=== PATIENT | male | born 1955 | race Caucasian/White ===

== ENCOUNTER 2020-10-14 07:45 | Outpatient (REF) | payer MEDICARE, SELFPAY ==
[2020-10-14 10:18] LABS: Hemoglobin 16.3 g/dl (14.0-18.0); Mean Corpuscular HGB Conc 33.3 g/dl (31.0-36.0); Mean Corpuscular Hemoglobin 33.5 pg (27.0-33.0); Mean Corpuscular Volume 100.8 fL (80-98); Mean Platelet Volume 10.1 fL (9.4-12.4); Platelet Count 224 X10*3/uL (160-400); Red Blood Count 4.86 X10*6/uL (4.60-5.80); Red Cell Distribution Width 12.5 % (11.0-16.0); White Blood Count 5.9 X10*3/uL (4.8-10.8)
[2020-10-14 10:43] LABS: Estimated Average Glucose 108 mg/dL; Hemoglobin A1c % 5.4 %
[2020-10-14 10:47] LABS: Alanine Aminotransferase 15 U/L (0-40); Albumin Level 4.2 g/dL (3.5-5.0); Alkaline Phosphatase 100 U/L (39-117); Anion Gap 11 (12-20); Aspartate Amino Transferase 23 U/L (5-37); Bilirubin Total 0.4 mg/dL (0.0-1.0); Blood Urea Nitrogen 27 mg/dL (9-16); Calcium 9.1 mg/dL (8.4-10.2); Carbon Dioxide 33 mmol/L (22-29); Chloride 102 mmol/L (96-108); Cholesterol 182 mg/dL; Estimated Glomerular Filt Rate > 60; Glucose Fasting 100 mg/dL (60-99); HDL Cholesterol 61 mg/dL; LDL Cholesterol Calculated 108 mg/dl; Potassium 4.1 mmol/L (3.3-5.1); Sodium 142 mmol/L (135-145); Total Protein 6.7 g/dL (6.5-8.0); Triglycerides 67 mg/dL
[2020-10-14 11:04] LABS: PSA,Total (Free>4and<10) 1.97 ng/mL (0.00-4.00)
[2020-10-14 11:13] LABS: Prostate Specific Antigen Scr 1.96 ng/mL (<0.05-4.0); TSH reflex Free T4 0.99 uIU/mL (0.32-4.0)
== END 2020-10-14 07:46 | disposition home or self-care (01) ==
LOC: HO.10HDL 07:45
PROVIDERS: Absent Provider Urology; Visit Provider Physician Assistant
DX: N40.1 Benign prostatic hyperplasia with lower urinary tract symptoms (principal); I10 Essential (primary) hypertension; Z12.5 Encounter for screening for malignant neoplasm of prostate; Z13.1 Encounter for screening for diabetes mellitus; Z13.220 Encounter for screening for lipoid disorders; Z13.29 Encounter for screening for other suspected endocrine disorder
CPT/HCPCS: 36415; 80053; 80061; 83036; 84153; 84443; 85027

== ENCOUNTER → 2020-11-14 08:23 | Outpatient (BNVA) | payer BC, SELFPAY | PROVIDERS: PCP Physician Assistant; Visit Provider Urology ==

== ENCOUNTER 2021-04-16 08:01 | Outpatient (REF) | payer BC, SELFPAY ==
[2021-04-16 10:34] LABS: Hematocrit 45.9 % (42-52); Hemoglobin 15.7 g/dl (14.0-18.0); Mean Corpuscular HGB Conc 34.2 g/dl (31.0-36.0); Mean Corpuscular Hemoglobin 33.6 pg (27.0-33.0); Mean Corpuscular Volume 98.3 fL (80-98); Mean Platelet Volume 10.2 fL (9.4-12.4); Platelet Count 223 X10*3/uL (160-400); Red Blood Count 4.67 X10*6/uL (4.60-5.80); Red Cell Distribution Width 12.7 % (11.0-16.0); White Blood Count 5.4 X10*3/uL (4.8-10.8)
[2021-04-16 10:46] LABS: Estimated Average Glucose 108 mg/dL; Hemoglobin A1c % 5.4 %
[2021-04-16 11:20] LABS: Alanine Aminotransferase 16 U/L (0-40); Alkaline Phosphatase 104 U/L (39-117); Anion Gap 11 (12-20); Aspartate Amino Transferase 24 U/L (5-37); Bilirubin Total 0.8 mg/dL (0.0-1.0); Blood Urea Nitrogen 24 mg/dL (9-16); Calcium 8.9 mg/dL (8.4-10.2); Carbon Dioxide 27 mmol/L (22-29); Chloride 107 mmol/L (96-108); Cholesterol 144 mg/dL; Estimated Glomerular Filt Rate > 60; Glucose Fasting 98 mg/dL (60-99); HDL Cholesterol 58 mg/dL; LDL Cholesterol Calculated 76 mg/dl; Potassium 3.9 mmol/L (3.3-5.1); Sodium 141 mmol/L (135-145); Total Protein 6.4 g/dL (6.5-8.0); Triglycerides 52 mg/dL
[2021-04-16 11:30] LABS: TSH reflex Free T4 0.94 uIU/mL (0.32-4.0)
== END 2021-04-16 08:02 | disposition home or self-care (01) ==
LOC: HO.10HDL 08:01
PROVIDERS: Visit Provider Physician Assistant
DX: I10 Essential (primary) hypertension (principal); E78.5 Hyperlipidemia, unspecified
CPT/HCPCS: 36415; 80053; 80061; 83036; 84443; 85027

== ENCOUNTER 2021-10-14 07:56 | Outpatient (REF) | payer MEDICARE, SELFPAY ==
[2021-10-14 08:38] LABS: Hematocrit 47.9 % (42.0-52.0); Hemoglobin 16.2 g/dl (14.0-18.0); Mean Corpuscular HGB Conc 33.8 g/dl (31.0-36.0); Mean Corpuscular Hemoglobin 33.5 pg (27.0-33.0); Mean Corpuscular Volume 99.2 fL (80.0-98.0); Mean Platelet Volume 9.6 fL (9.4-12.4); Platelet Count 230 X10*3/uL (160-400); Red Blood Count 4.83 X10*6/uL (4.60-5.80); Red Cell Distribution Width 12.4 % (11.0-16.0); White Blood Count 6.1 X10*3/uL (4.8-10.8)
[2021-10-14 09:08] LABS: Alanine Aminotransferase 16 U/L (0-40); Albumin Level 3.9 g/dL (3.5-5.0); Alkaline Phosphatase 125 U/L (39-117); Anion Gap 11 (12-20); Aspartate Amino Transferase 24 U/L (5-37); Bilirubin Total 0.3 mg/dL (0.0-1.0); Blood Urea Nitrogen 24 mg/dL (9-16); Calcium 9.1 mg/dL (8.4-10.2); Carbon Dioxide 28 mmol/L (22-29); Chloride 105 mmol/L (96-108); Cholesterol 151 mg/dL; Estimated Glomerular Filt Rate > 60; Glucose Fasting 97 mg/dL (60-99); HDL Cholesterol 52 mg/dL; LDL Cholesterol Calculated 89 mg/dl; Sodium 140 mmol/L (135-145); Total Protein 6.5 g/dL (6.5-8.0); Triglycerides 54 mg/dL
[2021-10-14 09:21] LABS: Prostate Specific Antigen 2.87 ng/mL (<0.05-4.0)
== END 2021-10-14 07:57 | disposition home or self-care (01) ==
LOC: HO.LAB 07:56
PROVIDERS: Urology; PCP Physician Assistant; Visit Provider Physician Assistant
DX: Z12.5 Encounter for screening for malignant neoplasm of prostate (principal); N13.8 Other obstructive and reflux uropathy; N40.0 Benign prostatic hyperplasia without lower urinary tract symptoms; N40.1 Benign prostatic hyperplasia with lower urinary tract symptoms; E78.2 Mixed hyperlipidemia; I10 Essential (primary) hypertension
CPT/HCPCS: 36415; 80053; 80061; 84153; 84443; 85027

== ENCOUNTER → 2021-11-18 09:18 | Outpatient (BNVA) | payer MEDICARE, SELFPAY | PROVIDERS: PCP Physician Assistant; Visit Provider Urology | DX: N40.0 Benign prostatic hyperplasia without lower urinary tract symptoms (principal) | CPT/HCPCS: 51798; 99212 ==

== ENCOUNTER 2022-04-20 07:31 | Outpatient (REF) | payer MEDICARE, SELFPAY ==
[2022-04-20 10:37] LABS: Hemoglobin 15.8 g/dl (14.0-18.0); Mean Corpuscular HGB Conc 34.3 g/dl (31.0-36.0); Mean Corpuscular Hemoglobin 34.1 pg (27.0-33.0); Mean Corpuscular Volume 99.1 fL (80.0-98.0); Mean Platelet Volume 10.2 fL (9.4-12.4); Platelet Count 217 X10*3/uL (160-400); Red Blood Count 4.64 X10*6/uL (4.60-5.80); Red Cell Distribution Width 12.7 % (11.0-16.0); White Blood Count 5.6 X10*3/uL (4.8-10.8)
[2022-04-20 10:49] LABS: Estimated Average Glucose 111 mg/dL; Hemoglobin A1C 151.0651 umol/L; Hemoglobin A1c % 5.5 %
[2022-04-20 11:07] LABS: Alanine Aminotransferase 20 U/L (0-40); Alkaline Phosphatase 117 U/L (39-117); Anion Gap 15 (12-20); Aspartate Amino Transferase 32 U/L (5-37); Bilirubin Total 0.6 mg/dL (0.0-1.0); Blood Urea Nitrogen 24 mg/dL (9-16); Calcium 8.9 mg/dL (8.4-10.2); Carbon Dioxide 27 mmol/L (22-29); Chloride 102 mmol/L (96-108); Cholesterol 144 mg/dL; Estimated Glomerular Filt Rate > 60; Glucose Fasting 101 mg/dL (60-99); HDL Cholesterol 52 mg/dL; LDL Cholesterol Calculated 81 mg/dl; Potassium 3.9 mmol/L (3.3-5.1); Sodium 140 mmol/L (135-145); Total Protein 6.5 g/dL (6.5-8.0); Triglycerides 57 mg/dL
[2022-04-20 11:28] LABS: TSH reflex Free T4 0.86 uIU/mL (0.32-4.0)
== END 2022-04-20 07:32 | disposition home or self-care (01) ==
LOC: HO.10HDL 07:31
PROVIDERS: Visit Provider Physician Assistant
DX: I10 Essential (primary) hypertension (principal)
CPT/HCPCS: 36415; 80053; 80061; 83036; 84443; 85027

== ENCOUNTER 2022-11-10 07:40 | Outpatient (REF) | payer MEDICARE, SELFPAY ==
[2022-11-10 11:34] LABS: Prostate Specific Antigen 3.03 ng/mL (<0.05-4.0)
== END 2022-11-10 07:41 | disposition home or self-care (01) ==
LOC: HO.10HDL 07:40
PROVIDERS: Visit Provider Urology
DX: Z12.5 Encounter for screening for malignant neoplasm of prostate (principal); N13.8 Other obstructive and reflux uropathy; N40.0 Benign prostatic hyperplasia without lower urinary tract symptoms
CPT/HCPCS: 36415; 84153

== ENCOUNTER → 2022-11-17 08:32 | Outpatient (BNVA) | payer MEDICARE, SELFPAY | PROVIDERS: PCP Physician Assistant; Visit Provider Urology | DX: N40.1 Benign prostatic hyperplasia with lower urinary tract symptoms (principal); N13.8 Other obstructive and reflux uropathy; R35.1 Nocturia; I10 Essential (primary) hypertension; E78.5 Hyperlipidemia, unspecified | CPT/HCPCS: 51798; 99212 ==

== ENCOUNTER 2023-01-12 07:42 | Outpatient (REF) | payer MEDICARE, SELFPAY ==
[2023-01-12 08:56] LABS: Hematocrit 48.3 % (42.0-52.0); Hemoglobin 16.8 g/dl (14.0-18.0); Mean Corpuscular HGB Conc 34.8 g/dl (31.0-36.0); Mean Corpuscular Hemoglobin 34.4 pg (27.0-33.0); Platelet Count 213 X10*3/uL (160-400); Red Blood Count 4.88 X10*6/uL (4.60-5.80); Red Cell Distribution Width 12.8 % (11.0-16.0); White Blood Count 5.5 X10*3/uL (4.8-10.8)
[2023-01-12 09:37] LABS: Alanine Aminotransferase 16 U/L (0-40); Albumin Level 4.1 g/dL (3.5-5.0); Alkaline Phosphatase 117 U/L (39-117); Anion Gap 13 (12-20); Aspartate Amino Transferase 26 U/L (5-37); Bilirubin Total 0.9 mg/dL (0.0-1.0); Blood Urea Nitrogen 23 mg/dL (9-16); Calcium 9.4 mg/dL (8.4-10.2); Carbon Dioxide 28 mmol/L (22-29); Chloride 105 mmol/L (96-108); Cholesterol 156 mg/dL; Estimated Glomerular Filt Rate > 60; Glucose Fasting 101 mg/dL (60-99); HDL Cholesterol 57 mg/dL; LDL Cholesterol Calculated 88 mg/dl; Sodium 142 mmol/L (135-145); Total Protein 6.7 g/dL (6.5-8.0); Triglycerides 58 mg/dL
[2023-01-12 09:51] LABS: TSH reflex Free T4 1.11 uIU/mL (0.32-4.0)
== END 2023-01-12 07:43 | disposition home or self-care (01) ==
LOC: HO.LAB 07:42
PROVIDERS: PCP Physician Assistant; Visit Provider Physician Assistant
DX: I10 Essential (primary) hypertension (principal); E78.2 Mixed hyperlipidemia
CPT/HCPCS: 36415; 80053; 80061; 84443; 85027

== ENCOUNTER 2023-08-06 07:41 | Outpatient (REF) | payer MEDICARE, SELFPAY | END 2023-08-06 07:42 | disposition home or self-care (01) | LOC: HO.LAB 07:41 | PROVIDERS: PCP Physician Assistant; Visit Provider Physician Assistant | DX: I10 Essential (primary) hypertension (principal); E78.2 Mixed hyperlipidemia | CPT/HCPCS: 36415; 80053; 80061; 85027 ==

== ENCOUNTER 2023-08-09 08:46 | Outpatient (AMB) | payer MEDICARE, SELFPAY ==
[2023-08-09 08:56] VITALS: BP 138/64; PULSE 87; O2SAT 98; BMI 24.7
--- NOTE | 2023-08-09 08:56 | MHC.PC.OV ---
Vital Signs 08/09/23 08:56 Height 5 ft 7 in Weight 158 lb BMI 24.7 BP 138/64 Blood Pressure Location Lt brachial Position Sitting Pulse 87 Pulse Source Pulse Oximeter Pulse Oximetry (%) 98 Oxygen Delivery Method Room Air Intake Visit Reasons: Annual exam Strategic Debriefing Specialist Required: No Clinical Dental Technician: Not Required per policy Accompanied by: Self / Same As Patient Allergies No Known Allergies Allergy (Verified 08/09/23 09:26) Medication List - Last Reconciled 08/09/23 by Sher Resendiz PA-C atorvastatin 40 mg PO DAILY hydrochlorothiazide 25 mg PO DAILY lisinopril 20 mg PO DAILY Tobacco use date assessed: 08/09/23 Fall risk assessment: No Falls in past year Last assessed Fall Risk: 08/09/23 Dental Screening Dental Screen Date: 08/09/23 Did you have a dental visit in the last 12 months?: Yes Did you have a dental problem in the last 6 months where you did not have access to dental care?: No Was dental information given to patient?: Patient has dentist HPI Annual exam HPI Details Patient is a 68-year-old male here today for a routine annual physical ? past medical history significant for hypertension, hyperlipidemia, BPH ... Hypertension:? Blood pressures have been stable, pressure here in office within normal limits.? He reports blood pressures at home are 120s to 130 systolic.? Patient denies any headaches chest pains shortness of breath. .. BPH; is followed by Urology has status post laser procedure in 2019. He has minimal nocturia.? He gets PSAs taken every year. PSA has been stable Vaccine: UTD with COVID vaccine, UTD with Td, considering Shingrex and PCV, . Declines Flu vaccine .. Colonoscopy: considering , Did have colon 10 years ago. Labs: Reviewed labs with patient and noted on his fasting blood sugar elevated to 110. He does admit to a lot of carbohydrates in his diet. He promises to cut down his carbohydrates. Laboratory Tests 01/12/23 08/06/23 08/06/23 07:55 08:04 08:04 RBC 4.84 Creatinine 0.81 Fasting Glucose 101 H 110 H Cholesterol 150 LDL Cholesterol, C alc 83 PFSH Medical History Nocturia Hyperlipidemia HTN (hypertension) Enlarged prostate without lower urinary tract symptoms (luts) Surgical History Appendicitis History of prostate surgery Family History (Updated 08/09/23 @ 09:31 by Sher Resendiz PA-C) Father Heart attack, Onset Age: 48 Son CVA (cerebral vascular accident) Social History (Updated 08/09/23 @ 09:32 by Sher Resendiz PA-C) Housing: House Alcohol intake: current Alcohol intake frequency: a few times a month Alcohol type: beer Patient Tobacco Use Status: Current someday Tobacco user Tobacco use type: Cigar e-Cigarette/Vaping Use: Never Used Second Hand Smoke Exposure: No Current occupational status: retired 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 1. Little interest or pleasure in doing things: not at all 2. Feeling down, depressed, or hopeless: not at all 3. Trouble falling or staying asleep, or sleeping too much: not at all 4. Feeling tired or having little energy: not at all 5. Poor appetite or overeating: not at all 6. Feeling bad about yourself - or that you are a failure or have let yourself or your family down: not at all 7. Trouble concentrating on things, such as reading the newspaper or watching television: not at all 8. Moving or speaking so slowly that other people could have noticed. Or the opposite - being so fidgety or restless that you have been moving around a lot more than usual: not at all 9. Thoughts that you would be better off or of hurting yourself in some way: not at all Total score: 0 Depression Screening Interpretation: Negative Depression Screening Done: Yes 58036 - PHQ-9 Billing: Yes Source: Developed by Drs. Aries Shi, Dalia Blevins, Dwaine Almaraz and colleagues, with an educational yoni from [employer]. Thrive Questionnaire Date Thrive assessed: 08/09/23 I am a: Patient What is your living situation today?: I have a steady place to live Within the past 12 months, did the food you bought not last and you didn't have the money to get more?: Never true Within the past 12 months, did you worry whether your food would run out before you got money to buy more?: Never true Do you have trouble paying for medicines?: No Do you have trouble getting transportation to medical appointments?: No Do you have trouble paying your heating and electricity bill?: No Do you have trouble taking care of your child, family member or friend?: No Do you have trouble with day-to-day activities such as bathing, preparing meals, shopping, managing finances, etc.?: No Are you currently unemployed and looking for a job?: No Are you interested in more education?: No Please select the resources that you would like help with: None AUDIT C Alcohol Use Questionnaire (AUDIT-C) 1. How often do you have a drink containing alcohol?: Monthly or less 2. How many drinks containing alcohol do you have on a typical day when you are drinking?: 1 or 2 3. How often do you have six or more drinks on one occasion?: Never Total Score: 1 ELISE-7 AMB Questionnaire ELISE-7 Date ELISE - 7 assessed: 08/09/23 Feeling nervous, anxious, or on edge: 0 = Not at all Not being able to stop or control worryin = Not at all Worrying too much about different things: 0 = Not at all Trouble relaxin = Not at all Being so restless that it is hard to sit still: 0 = Not at all Becoming easily annoyed or irritable: 0 = Not at all Feeling afraid as if something awful might happen: 0 = Not at all Total ELISE-7 score (0-4 normal; 5-9 mild; 10-14 moderate; 15-21 severe): 0 Source: Developed by Drs. Aries Shi, Dalia Blevins, Dwaine Almaraz and colleagues, with an educational yoni from [employer]. ELISE-7 Assessment Billing ELISE-7 Assessment Tool: ELISE-7 Assessment 94009 Review of Systems Const Denies body aches, Denies chills, Denies excessive sweating, Denies fatigue, Denies fever(s) and Denies headache(s) Eyes Denies blurry vision ENT Denies dysphagia, Denies vertigo, Denies dizziness, Denies headache(s), Denies hearing loss and Denies tinnitus Card Denies chest pain, Denies chest pain with activity, Denies syncope, Denies irregular heart rhythm and Denies dyspnea Resp Denies chest congestion, Denies cough, Denies hemoptysis, Denies dyspnea and Denies wheezing GI Denies abdominal pain, Denies melena, Denies hematochezia, Denies coffee ground emesis, Denies dysphagia, Denies diarrhea, Denies nausea and Denies vomiting Denies difficulty urinating, Denies dysuria, Denies urinary frequency, Denies urinary hesitancy and Denies urinary urgency Musc Denies arthralgias, Denies limited range of motion, Denies muscle cramps and Denies muscle weakness Skin/Breast Denies rash and Denies skin ulcer Neuro Denies Abnormal speech present, Denies confusion, Denies vertigo, Denies dizziness, Denies syncope, Denies headache(s), Denies memory loss and Denies seizure-like activity Psych Denies anxiety, Denies confusion, Denies depression, Denies memory loss, Denies panic attacks and Denies paranoia Endo Denies excessive sweating, Denies fatigue, Denies flushing, Denies polydipsia and Denies polyuria Aller/Immun Denies wheezing Physical exam (Primary Care) Vital Signs: Last Vital Signs Pulse 87 08/09/23 08:56 BP 138/64 08/09/23 08:56 Pulse Ox 98 08/09/23 08:56 Oxygen Delivery Method Room Air 08/09/23 08:56 BMI result Body Mass Index 24.7 Tobacco/Smoking Status: Tobacco use Status Tobacco use date assessed 08/09/23 08/09/23 08:57 Patient Tobacco Use Status Current someday Tobacco 08/09/23 09:32 Tobacco use type Cigar 08/09/23 09:32 e-Cigarette/Vaping Use Never Used 08/09/23 09:32 PHQ-9: PHQ-9 Score PHQ-9: Total score 0 08/09/23 09:33 Depression Screening Interpretation: Negative Thrive Assessment: Date of Thrive Assessment Date Thrive assessed 08/09/23 08/09/23 09:05 Const General: cooperative, comfortable, no acute distress, alert and awake; No confusion Orientation/consciousness: oriented to person, oriented to place, patient oriented x3 and No confusion HENMT Head: Yes normocephalic Ears: external ears normal and TM's normal bilaterally Face and sinus: No sinus tenderness Mouth: Normal oral and palatal mucosa present and tongue normal Teeth and gingiva: dentition normal and gingiva normal Throat: Yes posterior oropharynx normal, Yes tonsils normal and Yes uvula midline Eyes Conjunctivae: conjunctivae normal Sclerae: sclerae normal Pupils: Equal, round and reactive pupils present EOM: EOMs intact bilaterally Direct Ophthalmoscopy: No no photophobia Neck Neck: Yes no lymphadenopathy, No tender and Yes no JVD Thyroid: Thyroid normal Carotids: no bruits Chest Chest palpation & inspection: no tenderness Resp Effort & Inspection: normal respiratory effort, no audible wheezes, not labored and no stridor Auscultation: no crackles, no rales, no rhonchi and no wheezes Cardio Jugular venous distension: no JVD Rate: regular rate, not bradycardic and not tachycardic Rhythm: regular rhythm Bruits: no carotid bruits Peripheral pulses: Peripheral pulses 2+ throughout GI Inspection: Yes normal to inspection, No abdominal wall ecchymosis and No visible herniation Palpation (GI): Soft to palpation, nontender, no guarding, not rigid and No hepatosplenomegaly present Auscultation: normoactive bowel sounds General: Yes no CVA tenderness Back/Spine/Pelvis Back: no CVA tenderness and No back tenderness Cervical Spine: cervical ROM normal Thoracic/Lumbar Spine: thoracic and lumbar spine normal to inspection, straight leg raise negative bilaterally, No thoraco-lumbar ROM limited and No lumbar spinal tenderness Skin Lesions: no lesions Rashes: no rashes Wounds: no wounds Neuro General: oriented to person, oriented to place, patient oriented x3, CN's II-XI intact bilaterally and No confusion Cranial nerves: Yes Equal, round and reactive pupils present and Yes Normal accommodation reflex present Cognition (Neuro): normal cognition Speech: No Abnormal speech present Gait exam (Neuro): Normal gait present Motor exam (neuro): 5/5 motor strength present throughout Extrem Right upper extremity: full ROM; no cyanosis Left upper extremity: full ROM; no cyanosis Right lower extremity: no edema Left lower extremity: no edema Psych Appearance: grossly normal Mental Status: mental status grossly normal Affect: normal affect Attitude: cooperative Thought process: Normal thought process present Assessment and Plan Assessment & Plan (1) Annual physical exam: Code(s): Z00.00 - Encounter for general adult medical examination without abnormal findings (2) HLD (hyperlipidemia): Code(s): E78.5 - Hyperlipidemia, unspecified Qualifiers: Hyperlipidemia type: mixed hyperlipidemia Qualified Code(s): E78.2 - Mixed hyperlipidemia Plan: Patient continues on statin therapy [id number] dosing with excellent control of his lipid panel. Will continue to follow with goal LDL to be below 130 (3) HTN (hypertension): Code(s): I10 - Essential (primary) hypertension Qualifiers: Hypertension type: essential hypertension Qualified Code(s): I10 - Essential (primary) hypertension Plan: Patient's blood pressure acceptable today in office, will continue current dose of hydrochlorothiazide and lisinopril with goal blood pressure be below 140/90 (4) BPH (benign prostatic hyperplasia): Code(s): N40.0 - Benign prostatic hyperplasia without lower urinary tract symptoms Qualifiers: Lower urinary tract symptom presence: symptoms absent Qualified Code(s): N40.0 - Benign prostatic hyperplasia without lower urinary tract symptoms Plan: Continues to follow Urology, denies any urinary symptoms. Is status post TURP procedure , has been urinating well presents.. Most recent PSA stable. (5) Impaired glucose metabolism: Code(s): R73.09 - Other abnormal glucose Plan: Noted elevated fasting blood sugar. Does admit to a lot of carbohydrates in his diet. Will reduce his carbohydrates. Orders: Orders Microalbumin, Random (w Creat) 6 Months I10 - Essential (primary) hypertension Lipid Panel 6 Months E78.2 - Mixed hyperlipidemia Prostate Specific Antigen Scr 6 Months E78.2 - Mixed hyperlipidemia, Z12.5 - Encounter for screening for malignant neoplasm of prostate Hemoglobin A1c 6 Months R73.09 - Other abnormal glucose Comprehensive [place]. Panel Fast 6 Months I10 - Essential (primary) hypertension Medications: Refilled atorvastatin 40 mg PO DAILY 90 tabs 2RF E78.5 - Hyperlipidemia, unspecified hydrochlorothiazide 25 mg PO DAILY 90 tabs 2RF I10 - Essential (primary) hypertension lisinopril 20 mg PO DAILY 90 tabs 2RF I10 - Essential (primary) hypertension Coding Level of Care Code Est Pt Prev Care >65y(16750) Diagnoses Annual physical exam Z00.00 Mixed hyperlipidemia E78.2 Hyperlipidemia type: mixed hyperlipidemia Essential hypertension I10 Hypertension type: essential hypertension Benign prostatic hyperplasia without lower urinary tract symptoms N40.0 Lower urinary tract symptom presence: symptoms absent Impaired glucose metabolism R73.09 Additional Codes ELISE-7 Assessment Billing - ELISE-7 Assessment Tool: ELISE-7 Assessment 19310 ([id number])
== END 2023-08-09 09:49 | disposition home or self-care (01) ==
PROVIDERS: PCP Physician Assistant; Visit Provider Physician Assistant
DX: Z00.00 Encounter for general adult medical examination without abnormal findings (principal); E78.2 Mixed hyperlipidemia; I10 Essential (primary) hypertension; N40.0 Benign prostatic hyperplasia without lower urinary tract symptoms; R73.09 Other abnormal glucose
CPT/HCPCS: 99397

== ENCOUNTER 2023-11-12 07:45 | Outpatient (REF) | payer MEDICARE, SELFPAY ==
[2023-11-12 11:31] LABS: Prostate Specific Antigen 1.94 ng/mL (<0.05-4.0)
== END 2023-11-12 07:46 | disposition home or self-care (01) ==
LOC: HO.10HDL 07:45
PROVIDERS: Visit Provider Urology
DX: N40.0 Benign prostatic hyperplasia without lower urinary tract symptoms (principal); Z12.5 Encounter for screening for malignant neoplasm of prostate
CPT/HCPCS: 36415; 84153

== ENCOUNTER 2023-11-19 08:17 | Outpatient (AMB) | payer MEDICARE, SELFPAY ==
--- NOTE | 2023-11-19 08:21 | MHC.OFFVIS ---
Intake Visit Reasons: 1Y PSA(set)Confirmed Intake Note: Patient is Present for Follow Up Urology Medication: None Antibiotic Allergies:None Blood Thinners:None Patient states that his symptoms are a lot better. No complaints PVR: 0 Allergies No Known Allergies Allergy (Verified 11/19/23 08:24) HPI Comments Details: Chacho is a pleasant male. He is a patient of Dr. Resendiz. He is seen for the following urologic conditions - lower urinary tract symptoms - erectile dysfunction Continued low PVR Lower urinary tract symptoms Stable stream, minimal nocturia Very happy with outcome BPH procedure - late 2018 laser procedure PSA - 09/22 2.0, 09/23 2.9, 10/22 3.3, 11/23 1.9 Prior medical therapy tamsulosin Erectile dysfunction Progressive - past 4 months Has difficulty obtaining rigid enough erection Able to maintain Trial Viagra PFSH Medical History Nocturia Hyperlipidemia HTN (hypertension) Enlarged prostate without lower urinary tract symptoms (luts) Surgical History Appendicitis History of prostate surgery Family History Father Heart attack, Onset Age: 48 Son CVA (cerebral vascular accident) Social History Housing: House Alcohol intake: current Alcohol intake frequency: a few times a month Alcohol type: beer Patient Tobacco Use Status: Current someday Tobacco user Tobacco use type: Cigar e-Cigarette/Vaping Use: Never Used Second Hand Smoke Exposure: No Current occupational status: retired 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 Cognitive needs: No Hearing needs: No Vision needs: No Office Procedures Post Void Residual Post Residual Void Post Void Residual (PVR): [id number] Void Residual by ultrasound Assessment & Plan Assessment & Plan (1) Erectile dysfunction: Code(s): N52.9 - Male erectile dysfunction, unspecified Category: Medical (2) BPH (benign prostatic hyperplasia): Code(s): N40.0 - Benign prostatic hyperplasia without lower urinary tract symptoms Category: Medical Qualifiers: Lower urinary tract symptom presence: symptoms absent Qualified Code(s): N40.0 - Benign prostatic hyperplasia without lower urinary tract symptoms Plan Viagra Three-month follow-up tele Orders: Orders AMB Post Void Residual by ultrasound Today N40.0 - Benign prostatic hyperplasia without lower urinary tract symptoms Medications: New sildenafil administer 60 minutes before intended activity 100 mg PO ONCE 30 days PRN 30 tabs 1RF sexual activity N52.9 - Male erectile dysfunction, unspecified Patient Instructions: Imaging studies, laboratory and physical exam results were discussed and reviewed in detail. No major barriers to patient understanding were identified. An opportunity to ask questions regarding the treatment plan was provided. All questions were answered. The patient expressed understanding and agreement with the above treatment plan. The patient is aware they should contact our office by phone for worsening of their current condition or the appearance of new urologic symptoms. Compliance is encouraged with any medications and followup testing that is ordered. It is a privilege to participate in the urologic care of your patient. If you have any questions or concerns regarding treatment for the above conditions, or other urologic issues, please do not hesitate to contact me. The office telephone contact is [phone]. This note is constructed using voice recognition software. While every effort has been made to ensure accuracy post partum nurse errors may have been included. Yours sincerely, Dr Gigi Melissa MD, [facility] - Urology Providers of Expert, Compassionate Care for the Genitourinary System
== END 2023-11-19 08:46 | disposition home or self-care (01) ==
PROVIDERS: Visit Provider Urology
DX: N52.9 Male erectile dysfunction, unspecified (principal); N40.0 Benign prostatic hyperplasia without lower urinary tract symptoms
CPT/HCPCS: 99214

== ENCOUNTER → 2023-11-19 08:17 | Outpatient (BNVA) | payer MEDICARE, SELFPAY | PROVIDERS: Visit Provider Urology | DX: N40.0 Benign prostatic hyperplasia without lower urinary tract symptoms (principal); N52.9 Male erectile dysfunction, unspecified; R35.1 Nocturia | CPT/HCPCS: 51798; 99212 ==

== ENCOUNTER 2024-02-15 09:37 | Outpatient (AMB) | payer MEDICARE, SELFPAY ==
--- NOTE | 2024-02-15 09:39 | MHC.OFFVIS ---
Intake Visit Reasons: Med Review(Sildenafil) Intake Note: Patient is Present for Telephone Follow Up Med review Urology Med: Sildenafil Antibiotic Allergy: None Blood Thinner:None Engineering Test Specialist Required: No Allergies No Known Allergies Allergy (Verified 02/15/24 09:39) Medication List - Last Reconciled 02/15/24 by Gigi Melissa MD atorvastatin 40 mg PO DAILY hydrochlorothiazide 25 mg PO DAILY lisinopril 20 mg PO DAILY pentoxifylline ER 400 mg PO BID 90 days sildenafil 100 mg PO ONCE PRN 30 days tadalafil 5 mg PO DAILY 90 days vitamin E (dl, acetate) 450 mg PO DAILY 90 days HPI Comments Details: Chacho is a pleasant male. He is a patient of Dr. Resendiz. He is seen for the following urologic conditions - lower urinary tract symptoms - erectile dysfunction - Peyronie's disease Telemedicine Evaluation 15 min Consultation [employer] [place] Video Three-month follow-up trial on demand Viagra Describes progressive Peyronie's disease Discussed diagnosis and treatment options Initial recommendation for conservative therapy with antioxidant and rheostatic medications plus penile pump protocol Prescription provided Six-month follow-up Lower urinary tract symptoms Stable stream, minimal nocturia Very happy with outcome BPH procedure - late 2018 laser procedure PSA - 09/22 2.0, 09/23 2.9, 10/22 3.3, 11/23 1.9 Prior medical therapy tamsulosin Erectile dysfunction Progressive - Has difficulty obtaining rigid enough erection Able to maintain Viagra PFSH Medical History Nocturia Hyperlipidemia HTN (hypertension) Enlarged prostate without lower urinary tract symptoms (luts) Surgical History Appendicitis History of prostate surgery Family History Father Heart attack, Onset Age: 48 Son CVA (cerebral vascular accident) Social History Housing: House Alcohol intake: current Alcohol intake frequency: a few times a month Alcohol type: beer Patient Tobacco Use Status: Current someday Tobacco user Tobacco use type: Cigar e-Cigarette/Vaping Use: Never Used Second Hand Smoke Exposure: No Current occupational status: retired 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 Cognitive needs: No Hearing needs: No Vision needs: No Review of Systems Const All systems reviewed & are unremarkable except as noted in HPI and below Reports no additional complaints Resp Reports no additional complaints GI Reports no additional complaints Reports as per HPI Musc Reports no additional complaints Physical Exam Telemedicine evaluation Appropriate responses Regular breathing rate and rhythm HEENT Head: Yes normal to inspection Ears: hearing grossly normal bilaterally Eyes General: appearance normal, both eyes and all related structures Neck Neck: Yes normal visual inspection Chest Chest palpation & inspection: normal inspection of the chest Resp Effort & Inspection: normal respiratory effort and able to speak in complete sentences Telehealth Telehealth Telehealth Platform: [employer] Location of provider rendering services: practice address Location of patient: address on file Patient Identification confirmed using: Name, : Yes Telehealth method: video Patient verbally consented to treatment: Yes Patient verbally consented to billing insurance company: Yes Patient informed of any privacy concerns related to visit: Yes Minutes spent on Phone/Video with Pt.: 15 Assessment & Plan Assessment & Plan (1) Erectile dysfunction: Code(s): N52.9 - Male erectile dysfunction, unspecified Category: Medical (2) Peyronie's disease: Code(s): N48.6 - Induration penis plastica Category: Medical Plan Six-month follow-up Medications: New tadalafil daily med 5 mg PO DAILY 90 days 90 tabs 1RF sexual activity N48.6 - Induration penis plastica, N52.01 - Erectile dysfunction due to arterial insufficiency vitamin E (dl, acetate) 450 mg PO DAILY 90 days 90 caps 1RF N48.6 - Induration penis plastica pentoxifylline ER administer with meals 400 mg PO BID 90 days 180 tabs 1RF N48.6 - Induration penis plastica Patient Instructions: Imaging studies, laboratory and physical exam results were discussed and reviewed in detail. No major barriers to patient understanding were identified. An opportunity to ask questions regarding the treatment plan was provided. All questions were answered. The patient expressed understanding and agreement with the above treatment plan. The patient is aware they should contact our office by phone for worsening of their current condition or the appearance of new urologic symptoms. Compliance is encouraged with any medications and followup testing that is ordered. It is a privilege to participate in the urologic care of your patient. If you have any questions or concerns regarding treatment for the above conditions, or other urologic issues, please do not hesitate to contact me. The office telephone contact is [phone]. This note is constructed using voice recognition software. While every effort has been made to ensure accuracy viscera washer errors may have been included. Yours sincerely, Dr Gigi Melissa MD, [facility] - Urology Providers of Expert, Compassionate Care for the Genitourinary System Coding Level of Care Code Tele Est Pt Level 4 (74073) Diagnoses Erectile dysfunction N52.9 Peyronie's disease N48.6
== END 2024-02-15 10:11 | disposition home or self-care (01) ==
LOC: HO.HUSH 09:37
PROVIDERS: PCP Physician Assistant; Visit Provider Urology
DX: N52.9 Male erectile dysfunction, unspecified (principal); N48.6 Induration penis plastica
CPT/HCPCS: 99214

== ENCOUNTER → 2024-02-15 09:37 | Outpatient (BNVA) | payer MEDICARE, SELFPAY | PROVIDERS: PCP Physician Assistant; Visit Provider Urology ==

== ENCOUNTER 2024-08-11 07:42 | Outpatient (REF) | payer MEDICARE, SELFPAY ==
[2024-08-11 11:36] LABS: Prostate Specific Antigen Scr 2.98 ng/mL (<0.05-4.0)
[2024-08-11 11:41] LABS: Estimated Average Glucose 111 mg/dL; Hemoglobin A1C 159.9579 umol/L; Hemoglobin A1c % 5.5 % (<6.0); Total Hemoglobin (HGBA1C) 4396.1601 umol/L
[2024-08-11 12:08] LABS: Alanine Aminotransferase 16 U/L (0-40); Albumin Level 4.1 g/dL (3.5-5.0); Alkaline Phosphatase 113 U/L (39-117); Anion Gap 10 (12-20); Aspartate Amino Transferase 31 U/L (5-37); Bilirubin Total 0.7 mg/dL (0.0-1.0); Blood Urea Nitrogen 22 mg/dL (9-16); Calcium 9.1 mg/dL (8.4-10.2); Carbon Dioxide 32 mmol/L (22-29); Chloride 105 mmol/L (96-108); Cholesterol 156 mg/dL (<200); Estimated Glomerular Filt Rate > 60; Glucose Fasting 103 mg/dL (60-99); HDL Cholesterol 59 mg/dL (>40); LDL Cholesterol Calculated 83 mg/dL (<100); Potassium 4.1 mmol/L (3.3-5.1); Sodium 143 mmol/L (135-145); Total Protein 6.9 g/dL (6.5-8.0); Triglycerides 73 mg/dL (<150)
== END 2024-08-11 07:43 | disposition home or self-care (01) ==
LOC: HO.10HDL 07:42
PROVIDERS: Referring Provider Urology; Visit Provider Physician Assistant
DX: Z12.5 Encounter for screening for malignant neoplasm of prostate (principal); R73.09 Other abnormal glucose; I10 Essential (primary) hypertension; E78.2 Mixed hyperlipidemia
CPT/HCPCS: 36415; 80053; 80061; 83036; 84153

== ENCOUNTER 2024-08-14 08:41 | Outpatient (AMB) | payer MEDICARE, SELFPAY ==
--- NOTE | 2024-08-14 08:55 | A.OFFPC_ITS ---
Vital Signs 08/14/24 08:56 Height 5 ft 7 in Weight 154 lb 2 oz BMI 24.1 BP 110/70 Blood Pressure Location Lt brachial Position Sitting Pulse 83 Pulse Source Pulse Oximeter Pulse Oximetry (%) 96 Oxygen Delivery Method Room Air Intake Visit Reasons: Annual exam Intake Note: Patient is here today for a physical. Pt decline flu shot today. Snow Blower Required: No Clinical Psychologist Licensed: Not Required per policy Accompanied by: Self / Same As Patient Allergies No Known Allergies Allergy (Verified 08/14/24 09:17) Medication List - Last Reconciled 08/14/24 by Sher Resendiz PA-C atorvastatin 40 mg PO DAILY hydrochlorothiazide 25 mg PO DAILY lisinopril 20 mg PO DAILY pentoxifylline ER 400 mg PO BID 90 days sildenafil 100 mg PO ONCE PRN 30 days tadalafil 5 mg PO DAILY 90 days vitamin E (dl, acetate) 450 mg PO DAILY 90 days Tobacco use date assessed: 08/14/24 Fall risk assessment: No Falls in past year Last assessed Fall Risk: 08/14/24 Dental Screening Dental Screen Date: 08/14/24 Did you have a dental visit in the last 12 months?: Yes Did you have a dental problem in the last 6 months where you did not have access to dental care?: No Was dental information given to patient?: Patient has dentist HPI Annual exam HPI Details Patient is a 69 year-old male here today for a routine annual physical ? past medical history significant for hypertension, hyperlipidemia, BPH ... Hypertension:? Blood pressures have been stable, pressure here in office within normal limits.? He reports blood pressures at home are 120s to 130 systolic.? Patient denies any headaches chest pains shortness of breath. .. Hyperlipidemia: Most recent labs showing excellent control of his total cholesterol LDL. .. BPH; is followed by Urology has status post laser procedure in 2019. He has minimal nocturia.? He gets PSAs taken every year. PSA has been stable Vaccine: UTD with COVID vaccine, UTD with Td, considering Shingrex and PCV, . De clines Flu vaccine .. Colonoscopy: considering , Did have colon 10 years ago. Labs: Reviewed labs with patient and noted on his fasting blood sugar elevated to 110. He does admit to a lot of carbohydrates in his diet. He promises to cut down his carbohydrates. Laboratory Tests 01/12/23 08/06/2324 07:55 08:04 08:04 RBC 4.84 Creatinine 0.81 Fasting Glucose 101 H 110 H Cholesterol 150 LDL Cholesterol, C alc 83 Laboratory Tests 08/06/23 08/11/24 08:04 07:45 Hgb 16.3 Creatinine 0.89 Fasting Glucose 110 H 103 H LDL Cholesterol, C alc 83 PSA Screen 2.98 [facility] Medical History (Updated 08/14/24 @ 09:39 by Sher Resendiz PA-C) Elevated BUN Nocturia Hyperlipidemia HTN (hypertension) Enlarged prostate without lower urinary tract symptoms (luts) Surgical History Appendicitis History of prostate surgery Family History (Updated 08/14/24 @ 09:21 by Sher Resendiz PA-C) Father Heart attack, Onset Age: 48 Son CVA (cerebral vascular accident) Sister CVA (cerebral vascular accident) Social History Housing: House Alcohol intake: current Alcohol intake frequency: a few times a month Alcohol type: beer Patient Tobacco Use Status: Current someday Tobacco user Tobacco use type: Cigar e-Cigarette/Vaping Use: Never Used Second Hand Smoke Exposure: Yes service: No Current occupational status: retired 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 1. Little interest or pleasure in doing things: not at all 2. Feeling down, depressed, or hopeless: not at all 3. Trouble falling or staying asleep, or sleeping too much: not at all 4. Feeling tired or having little energy: not at all 5. Poor appetite or overeating: not at all 6. Feeling bad about yourself - or that you are a failure or have let yourself or your family down: not at all 7. Trouble concentrating on things, such as reading the newspaper or watching television: not at all 8. Moving or speaking so slowly that other people could have noticed. Or the opposite - being so fidgety or restless that you have been moving around a lot more than usual: not at all 9. Thoughts that you would be better off or of hurting yourself in some way: not at all Total score: 0 Depression Screening Interpretation: Negative Depression Screening Done: Yes 28742 - PHQ-9 Billing: Yes Source: Developed by Drs. Aries Shi, Dalia Blevins, Dwaine Almaraz and colleagues, with an educational yoni from [employer]. Thrive Questionnaire Date Thrive assessed: 08/14/24 I am a: Patient What is your living situation today?: I have a steady place to live Within the past 12 months, did the food you bought not last and you didn't have the money to get more?: I choose not to answer this question Within the past 12 months, did you worry whether your food would run out before you got money to buy more?: I choose not to answer this question Do you have trouble paying for medicines?: I choose not to answer this question Do you have trouble getting transportation to medical appointments?: I choose not to answer this question Do you have trouble paying your heating and electricity bill?: I choose not to answer this question Do you have trouble taking care of your child, family member or friend?: I choose not to answer this question Do you have trouble with day-to-day activities such as bathing, preparing meals, shopping, managing finances, etc.?: I choose not to answer this question Are you currently unemployed and looking for a job?: I choose not to answer this question Are you interested in more education?: I choose not to answer this question Please select the resources that you would like help with: None Currently or been in a relationship where the following occur: I choose not to answer THRIVE Score: 0 AUDIT C Alcohol Use Questionnaire (AUDIT-C) 1. How often do you have a drink containing alcohol?: Never Total Score: 0 ELISE-7 AMB Questionnaire ELISE-7 Date ELISE - 7 assessed: 08/14/24 Feeling nervous, anxious, or on edge: 0 = Not at all Not being able to stop or control worryin = Not at all Worrying too much about different things: 0 = Not at all Trouble relaxin = Not at all Being so restless that it is hard to sit still: 0 = Not at all Becoming easily annoyed or irritable: 0 = Not at all Feeling afraid as if something awful might happen: 0 = Not at all Total ELISE-7 score (0-4 normal; 5-9 mild; 10-14 moderate; 15-21 severe): 0 Source: Developed by Drs. Aries Shi, Dalia Blevins, Dwaine Almaraz and colleagues, with an educational yoni from [employer]. ELISE-7 Assessment Billing ELISE-7 Assessment Tool: ELISE-7 Assessment 51880 Review of Systems Const Denies body aches, Denies chills, Denies excessive sweating, Denies fatigue, Denies fever(s) and Denies headache(s) Eyes Denies blurry vision ENT Denies dysphagia, Denies vertigo, Denies dizziness, Denies headache(s), Denies hearing loss and Denies tinnitus Card Denies chest pain, Denies chest pain with activity, Denies syncope, Denies irregular heart rhythm and Denies dyspnea Resp Denies chest congestion, Denies cough, Denies hemoptysis, Denies dyspnea and Denies wheezing GI Denies abdominal pain, Denies melena, Denies hematochezia, Denies coffee ground emesis, Denies dysphagia, Denies diarrhea, Denies nausea and Denies vomiting Denies difficulty urinating, Denies dysuria, Denies urinary frequency, Denies urinary hesitancy and Denies urinary urgency Musc Denies arthralgias, Denies limited range of motion, Denies muscle cramps and Denies muscle weakness Skin/Breast Denies rash and Denies skin ulcer Neuro Denies Abnormal speech present, Denies confusion, Denies vertigo, Denies dizziness, Denies syncope, Denies headache(s), Denies memory loss and Denies seizure-like activity Psych Denies anxiety, Denies confusion, Denies depression, Denies memory loss, Denies panic attacks and Denies paranoia Endo Denies excessive sweating, Denies fatigue, Denies flushing, Denies polydipsia and Denies polyuria Aller/Immun Denies wheezing Physical exam (Primary Care) Vital Signs: Last Vital Signs Pulse 83 08/14/24 08:56 BP 110/70 08/14/24 08:56 Pulse Ox 96 08/14/24 08:56 Oxygen Delivery Method Room Air 08/14/24 08:56 BMI result Body Mass Index 24.1 Tobacco/Smoking Status: Tobacco use Status Tobacco use date assessed 08/14/24 08/14/24 09:01 Patient Tobacco Use Status Current someday Tobacco 08/14/24 09:01 Tobacco use type Cigar 08/14/24 09:01 e-Cigarette/Vaping Use Never Used 08/14/24 09:01 PHQ-9: PHQ-9 Score PHQ-9: Total score 0 08/14/24 09:01 Depression Screening Interpretation: Negative Thrive Assessment: Date of Thrive Assessment Date Thrive assessed 08/14/24 08/14/24 09:01 Currently or been in a relationship where the following occur: I choose not to answer Const General: cooperative, comfortable, no acute distress, alert and awake; No confusion Orientation/consciousness: oriented to person, oriented to place, patient oriented x3 and No confusion HENMT Head: Yes normocephalic Ears: external ears normal and TM's normal bilaterally Face and sinus: No sinus tenderness Mouth: Normal oral and palatal mucosa present and tongue normal Teeth and gingiva: dentition normal and gingiva normal Throat: Yes posterior oropharynx normal, Yes tonsils normal and Yes uvula midline Eyes Conjunctivae: conjunctivae normal Sclerae: sclerae normal Pupils: Equal, round and reactive pupils present EOM: EOMs intact bilaterally Direct Ophthalmoscopy: No no photophobia Neck Neck: Yes no lymphadenopathy, No tender and Yes no JVD Thyroid: Thyroid normal Carotids: no bruits Chest Chest palpation & inspection: no tenderness Resp Effort & Inspection: normal respiratory effort, no audible wheezes, not labored and no stridor Auscultation: no crackles, no rales, no rhonchi and no wheezes Cardio Jugular venous distension: no JVD Rate: regular rate, not bradycardic and not tachycardic Rhythm: regular rhythm Bruits: no carotid bruits Peripheral pulses: Peripheral pulses 2+ throughout GI Inspection: Yes normal to inspection, No abdominal wall ecchymosis and No visible herniation Palpation (GI): Soft to palpation, nontender, no guarding, not rigid and No hepatosplenomegaly present Auscultation: normoactive bowel sounds General: Yes no CVA tenderness Back/Spine/Pelvis Back: no CVA tenderness and No back tenderness Cervical Spine: cervical ROM normal Thoracic/Lumbar Spine: thoracic and lumbar spine normal to inspection, straight leg raise negative bilaterally, No thoraco-lumbar ROM limited and No lumbar spinal tenderness Skin Lesions: no lesions Rashes: no rashes Wounds: no wounds Neuro General: oriented to person, oriented to place, patient oriented x3, CN's II-XI intact bilaterally and No confusion Cranial nerves: Yes Equal, round and reactive pupils present and Yes Normal accommodation reflex present Cognition (Neuro): normal cognition Speech: No Abnormal speech present Gait exam (Neuro): Normal gait present Motor exam (neuro): 5/5 motor strength present throughout Extrem Right upper extremity: full ROM; no cyanosis Left upper extremity: full ROM; no cyanosis Right lower extremity: no edema Left lower extremity: no edema Psych Appearance: grossly normal Mental Status: mental status grossly normal Affect: normal affect Attitude: cooperative Thought process: Normal thought process present Coding Level of Care Code Est Pt Prev Care >65y(28554) Diagnoses Annual physical exam Z00.00 Mixed hyperlipidemia E78.2 Hyperlipidemia type: mixed hyperlipidemia Essential hypertension I10 Hypertension type: essential hypertension Impaired glucose metabolism R73.09 Additional Codes PHQ-9 - 58201 - PHQ-9 Billing: Yes ([id number]) ELISE-7 Assessment Billing - ELISE-7 Assessment Tool: ELISE-7 Assessment 39967 ([id number]) Assessment & Plan Assessment & Plan (1) Annual physical exam: Code(s): Z00.00 - Encounter for general adult medical examination without abnormal findings Category: Medical Plan: As per HPI (2) HLD (hyperlipidemia): Code(s): E78.5 - Hyperlipidemia, unspecified Category: Medical Qualifiers: Hyperlipidemia type: mixed hyperlipidemia Qualified Code(s): E78.2 - Mixed hyperlipidemia Plan: Patient's most recent lipid panel showing excellent control of his total cholesterol and LDL. Will continue him on his current dose of statin therapy with goal LDL to remain below 100 (3) HTN (hypertension): Code(s): I10 - Essential (primary) hypertension Category: Medical Qualifiers: Hypertension type: essential hypertension Qualified Code(s): I10 - Essential (primary) hypertension Plan: Patient's blood pressure acceptable today in office. Will continue his current dose of antihypertensive medication with goal blood pressure to remain below 140/90 (4) Impaired glucose metabolism: Code(s): R73.09 - Other abnormal glucose Category: Medical Plan: Patient's most recent fasting blood sugar slightly elevated at 103 and A1c remains at 5.5. Continue to work on dietary modifications. Medications: Refilled hydrochlorothiazide 25 mg PO DAILY 90 tabs 2RF I10 - Essential (primary) hypertension atorvastatin 40 mg PO DAILY 90 tabs 2RF E78.5 - Hyperlipidemia, unspecified lisinopril 20 mg PO DAILY 90 tabs 2RF I10 - Essential (primary) hypertension Patient Instructions: Goal: Fasting blood sugar to be below 100, LDL to remain below 100 Barriers: Adherence to physical activity and healthy eating habits
[2024-08-14 08:56] VITALS: BP 110/70; PULSE 83; O2SAT 96; BMI 24.1
== END 2024-08-14 12:20 | disposition home or self-care (01) ==
PROVIDERS: PCP Physician Assistant; Visit Provider Physician Assistant
DX: Z00.00 Encounter for general adult medical examination without abnormal findings (principal); E78.2 Mixed hyperlipidemia; I10 Essential (primary) hypertension; R73.09 Other abnormal glucose

== ENCOUNTER → 2024-08-14 08:41 | Outpatient (BNVA) | payer MEDICARE, SELFPAY | PROVIDERS: PCP Physician Assistant; Visit Provider Physician Assistant | DX: Z00.00 Encounter for general adult medical examination without abnormal findings (principal); I10 Essential (primary) hypertension; N40.0 Benign prostatic hyperplasia without lower urinary tract symptoms; R73.09 Other abnormal glucose; E78.2 Mixed hyperlipidemia; F17.290 Nicotine dependence, other tobacco product, uncomplicated | CPT/HCPCS: 96127; 99397 ==

== ENCOUNTER 2024-08-15 09:13 | Outpatient (AMB) | payer MEDICARE, SELFPAY ==
--- NOTE | 2024-08-15 09:17 | A.OFFVIS_ITS ---
Intake Visit Reasons: 6M Med Review Intake Note: Patient is present for 6M MED REVIEW Urology Medication:PENTOXIFYLLINE,TADALAFIL,SILDENAFIL,VITAMIN E Antibiotic Allergy:NONE Blood Thinner:NONE Nurse Case Management Required: No Allergies No Known Allergies Allergy (Verified 08/15/24 09:17) HPI Comments Details: Chacho is a pleasant male. He is a patient of Dr. Resendiz. He is seen f or the following urologic conditions - lower urinary tract symptoms - erectile dysfunction - Peyronie's disease Six-month follow-up Progressive Peyronie's disease Here for review of conservative therapy with antioxidant and rheostatic medications plus penile pump protocol Had some delay getting penile pump Has noticed slow improvement Would like to continue Review in six-month Lower urinary tract symptoms Stable stream, minimal nocturia Very happy with outcome BPH procedure - late 2018 laser procedure PSA - 09/22 2.0, 09/23 2.9, 10/22 3.3, 11/23 1.9, 08/26 3.0 Prior medical therapy tamsulosin Erectile dysfunction Progressive - Has difficulty obtaining rigid enough erection Able to maintain Viagra [facility] Medical History (Updated 08/14/24 @ 09:39 by Sher Resendiz PA-C) Elevated BUN Nocturia Hyperlipidemia HTN (hypertension) Enlarged prostate without lower urinary tract symptoms (luts) Surgical History Appendicitis History of prostate surgery Family History (Updated 08/14/24 @ 09:22 by Sher Resendiz PA-C) Father Heart attack, Onset Age: 48 Son CVA (cerebral vascular accident) Sister CVA (cerebral vascular accident) Social History Housing: House Alcohol intake: current Alcohol intake frequency: a few times a month Alcohol type: beer Patient Tobacco Use Status: Current someday Tobacco user Tobacco use type: Cigar e-Cigarette/Vaping Use: Never Used Second Hand Smoke Exposure: Yes service: No Current occupational status: retired 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 Cognitive needs: No Hearing needs: No Vision needs: No Review of Systems Const Denies chills and Denies fever(s) Card Reports no additional complaints and Denies syncope Resp Denies cough GI Denies abdominal pain and Denies heartburn Reports as per HPI and Denies change in libido Neuro Denies syncope Psych Denies change in libido Endo Denies change in libido Physical Exam Const General: cooperative, healthy appearing, comfortable and no acute distress Orientation/consciousness: patient oriented x3 HEENT Face and sinus: Yes normal facial exam Mouth: moist mucous membranes Neck Neck: Yes normal visual inspection, Yes full ROM and Yes trachea midline Chest Chest palpation & inspection: normal inspection of the chest Resp Effort & Inspection: normal respiratory effort, able to speak in complete sentences and no respiratory distress GI Inspection: Yes normal to inspection Back/Spine/Pelvis Cervical Spine: normal cervical lordosis Thoracic/Lumbar Spine: thoracic and lumbar spine normal to inspection Skin General skin exam: no rashes or lesions noted Neuro General: patient oriented x3, gait normal, tone normal and moves all extremities Extrem General: Yes normal to inspection and Yes capillary refill normal Results AMB Urinalysis, Automated UA Leukoctes 0 Holly/uL Last Edit by BLAINE Crain on 08/15/24 09:26 UA Nitrite Negative Last Edit by BLAINE Crain on 08/15/24 09:26 UA Urobilinogen 0.2 mg/dL Last Edit by BLAINE Crain on 08/15/24 09:2 6 UA Protein 0 mg/dL Last Edit by BLAINE Crain on 08/15/24 09:26 UA pH 6.0 Last Edit by BLAINE Crain on 08/15/24 09:26 UA Blood 0 Donavon/uL Last Edit by BLAINE Crain on 08/15/24 09:26 UA Specific [place] 1.020 Last Edit by BLAINE Crain on 08/15/24 09: 26 UA Ketone Negative Last Edit by BLAINE Crain on 08/15/24 09:26 UA Bilirubin 0 mg/dL Last Edit by BLAINE Crain on 08/15/24 09:26 UA Glucose 0 mg/dL Last Edit by BLAINE Crain on 08/15/24 09:26 Results Reviewed Results Reviewed: Laboratory Last Values Urine pH (Auto) 6.0 08/15/24 09:25 Specific [place] (Auto) 1.020 08/15/24 09:25 Urine Protein (Auto) 0 mg/dL 08/15/24 09:25 Glucose (UA)(Auto) 0 mg/dL 08/15/24 09:25 Urine Ketones (Auto) Negative 08/15/24 09:25 Urine Blood (Auto) 0 Donavon/uL 08/15/24 09:25 Urine Nitrite (Auto) Negative 08/15/24 09:25 Urine Bilirubin (Auto) 0 mg/dL 08/15/24 09:25 Urine Urobilinogen (Auto) 0.2 mg/dL 08/15/24 09:25 Leukocyte Esterase (Auto) 0 Holly/uL 08/15/24 09:25 Assessment & Plan Assessment & Plan (1) Peyronie's disease: Code(s): N48.6 - Induration penis plastica Category: Medical (2) Erectile dysfunction: Code(s): N52.9 - Male erectile dysfunction, unspecified Category: Medical (3) BPH (benign prostatic hyperplasia): Code(s): N40.0 - Benign prostatic hyperplasia without lower urinary tract symptoms Category: Medical Qualifiers: Lower urinary tract symptom presence: symptoms absent Qualified Code(s): N40.0 - Benign prostatic hyperplasia without lower urinary tract symptoms Plan Six-month follow-up Orders: Orders AMB Urinalysis Automated Today Z13.9 - Encounter for screening, unspecified Patient Instructions: Imaging studies, laboratory and physical exam results were discussed and reviewed in detail. No major barriers to patient understanding were identified. An opportunity to ask questions regarding the treatment plan was provided. All questions were answered. The patient expressed understanding and agreement with the above treatment plan. The patient is aware they should contact our office by phone for worsening of their current condition or the appearance of new urologic symptoms. Compliance is encouraged with any medications and followup testing that is ordered. It is a privilege to participate in the urologic care of your patient. If you have any questions or concerns regarding treatment for the above conditions, or other urologic issues, please do not hesitate to contact me. The office telephone contact is [phone]. This note is constructed using voice recognition software. While every effort has been made to ensure accuracy catalytic case operator errors may have been included. Yours sincerely, Dr Gigi Melissa MD, [facility] - Urology Providers of Expert, Compassionate Care for the Genitourinary System Coding Level of Care Code Est Pt Level 3 (54994) Diagnoses Peyronie's disease N48.6 Erectile dysfunction N52.9 Benign prostatic hyperplasia without lower urinary tract symptoms N40.0 Lower urinary tract symptom presence: symptoms absent
== END 2024-08-15 09:59 | disposition home or self-care (01) ==
PROVIDERS: PCP Physician Assistant; Visit Provider Urology
DX: N48.6 Induration penis plastica (principal); N52.9 Male erectile dysfunction, unspecified; N40.0 Benign prostatic hyperplasia without lower urinary tract symptoms; Z13.9 Encounter for screening, unspecified
CPT/HCPCS: 99213

== ENCOUNTER → 2024-08-15 09:13 | Outpatient (BNVA) | payer MEDICARE, SELFPAY | PROVIDERS: PCP Physician Assistant; Visit Provider Urology | DX: N48.6 Induration penis plastica (principal); N52.9 Male erectile dysfunction, unspecified; N40.0 Benign prostatic hyperplasia without lower urinary tract symptoms | CPT/HCPCS: 81003; 99212 ==

== ENCOUNTER 2025-02-13 09:29 | Outpatient (AMB) | payer MEDICARE, SELFPAY ==
--- NOTE | 2025-02-13 09:32 | MHC.OFFVIS ---
Intake Visit Reasons: 6m follow up Intake Note: Patient is present for 6 mo follow up for ED and BPH Urology Medication:TADALAFIL,SILDENAFIL PVR:40 mls Blood Thinner:NONE Certified Indoor Environmentalist Required: No Accompanied by: Self / Same As Patient Allergies No Known Allergies Allergy (Verified 02/13/25 09:32) HPI Comments Details: Chacho is a pleasant male. He is a patient of Dr. Resendiz. He is seen for the following urologic conditions - lower urinary tract symptoms - erectile dysfunction - Peyronie's disease Six-month follow-up Progressive Peyronie's disease Here for review of conservative therapy with antioxidant and rheostatic medications plus penile pump protocol Would like to continue Lower urinary tract symptoms Stable stream, minimal nocturia Very happy with outcome BPH procedure - late 2018 laser procedure PSA - 09/22 2.0, 09/23 2.9, 10/22 3.3, 11/23 1.9, 08/26 3.0 Prior medical therapy tamsulosin Erectile dysfunction Progressive - Has difficulty obtaining rigid enough erection Able to maintain Viagra Peyronie's Has undergone penile pump protocol with antioxidant and rheostatic medications PFSH Medical History (Updated 08/14/24 @ 09:39 by Sher Resendiz PA-C) Elevated BUN Nocturia Hyperlipidemia HTN (hypertension) Enlarged prostate without lower urinary tract symptoms (luts) Surgical History Appendicitis History of prostate surgery Family History (Updated 08/14/24 @ 09:22 by Sher Resendiz PA-C) Father Heart attack, Onset Age: 48 Son CVA (cerebral vascular accident) Sister CVA (cerebral vascular accident) Social History Housing: House Alcohol intake: current Alcohol intake frequency: a few times a month Alcohol type: beer Patient Tobacco Use Status: Current someday Tobacco user Tobacco use type: Cigar e-Cigarette/Vaping Use: Never Used Second Hand Smoke Exposure: Yes service: No Current occupational status: retired 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 Cognitive needs: No Hearing needs: No Vision needs: No Assessment & Plan Assessment & Plan (1) BPH (benign prostatic hyperplasia): Code(s): N40.0 - Benign prostatic hyperplasia without lower urinary tract symptoms Category: Medical Qualifiers: Lower urinary tract symptom presence: symptoms absent Qualified Code(s): N40.0 - Benign prostatic hyperplasia without lower urinary tract symptoms (2) Erectile dysfunction: Code(s): N52.9 - Male erectile dysfunction, unspecified Category: Medical (3) Peyronie's disease: Code(s): N48.6 - Induration penis plastica Category: Medical Plan Six-month follow-up Patient Instructions: This note is constructed using voice recognition software. While every effort has been made to ensure accuracy redevelopment specialist errors may have been included. Imaging studies, laboratory and physical exam results were discussed and reviewed in detail. No major barriers to patient understanding were identified. An opportunity to ask questions regarding the treatment plan was provided. All questions were answered. The patient expressed understanding and agreement with the above treatment plan. The patient is aware they should contact our office by phone for worsening of their current condition or the appearance of new urologic symptoms. Compliance is encouraged with any medications and followup testing that is ordered. It is a privilege to participate in the urologic care of your patient. If you have any questions or concerns regarding treatment for the above conditions, or other urologic issues, please do not hesitate to contact me. The office telephone contact is [phone]. Sincerely, Dr Gigi Melissa MD, [facility] - Urology Compassionate Specialist Care for the Genitourinary System Coding Level of Care Code Est Pt Level 3 (14596) Complex EM visit Add On G2211 Diagnoses Benign prostatic hyperplasia without lower urinary tract symptoms N40.0 Lower urinary tract symptom presence: symptoms absent Erectile dysfunction N52.9 Peyronie's disease N48.6
--- OUTSIDE RECORDS SUMMARY | 2025-02-13 10:02 | XMS_ITS | Patient Health Record ---
Author Organization [facility] Address [address] [place] [address] Care Team Providers Care Contract Designer Name Role Phone Aries Dougherty [phone] Reason For Referral No Information Plan Of Treatment No Information
== END 2025-02-13 10:06 | disposition home or self-care (01) ==
LOC: HO.HUSH 09:29
PROVIDERS: PCP Physician Assistant; Visit Provider Urology
DX: N40.0 Benign prostatic hyperplasia without lower urinary tract symptoms (principal); N52.9 Male erectile dysfunction, unspecified; N48.6 Induration penis plastica; Z13.9 Encounter for screening, unspecified
CPT/HCPCS: 99213; G2211

== ENCOUNTER → 2025-02-13 09:29 | Outpatient (BNVA) | payer MEDICARE, SELFPAY | PROVIDERS: PCP Physician Assistant; Visit Provider Urology | DX: N40.0 Benign prostatic hyperplasia without lower urinary tract symptoms (principal); N52.9 Male erectile dysfunction, unspecified; N48.6 Induration penis plastica | CPT/HCPCS: 51798; 81003; 99212 ==